=== PATIENT | male | born 1985 | race Caucasian/White ===

== ENCOUNTER 2020-04-13 17:15 | Outpatient (CLI) | payer BC ==
--- NOTE | 2020-04-14 09:03 | XRAY Report ---
PROCEDURE: Chest 2 View X-Ray INDICATIONS: UPPER RESPIRATORY INFECTION, VIRAL TECHNIQUE: 2 view(s) of the chest. COMPARISON: None. FINDINGS: Surgical changes and devices: None. Lungs and pleura: No pleural effusions or pneumothorax. Lungs are clear. Mediastinum: Mediastinal contours are normal. Heart size is normal. Bones and chest wall: No suspicious bony abnormalities. Soft tissues appear unremarkable. IMPRESSION: No acute cardiopulmonary pathology. Reviewed by: Hong Luna MD on 04/14/2020 9:02 AM [facility] Approved by: Hong Luna MD on 04/14/2020 9:02 AM [facility] Station ID: [id number]
== END 2020-04-13 23:59 | disposition home or self-care (01) ==
LOC: DI.S 17:15
PROVIDERS: ATTEND Emergency Medicine
DX: J06.9 Acute upper respiratory infection, unspecified (principal); Z20.822 Contact with and (suspected) exposure to COVID-19

== ENCOUNTER 2020-04-14 12:25 | Outpatient (CLI) | payer BC | END 2020-04-14 23:59 | disposition home or self-care (01) | LOC: LAB.S 12:25 | PROVIDERS: ATTEND Emergency Medicine | DX: J06.9 Acute upper respiratory infection, unspecified (principal); Z11.59 Encounter for screening for other viral diseases; Z20.822 Contact with and (suspected) exposure to COVID-19 ==